=== PATIENT | female | born 2000 | race Caucasian/White ===

== ENCOUNTER 2022-11-06 14:51 | Outpatient (REF) | payer OTHER, SELFPAY ==
[2022-11-06 18:28] LABS: Abs Immature Grans 0.05 10^3/uL (0.0-0.06); Absolute Basophil Count 0.04 10^3/uL (0.0-0.2); Absolute Eosinophil Count 0.16 10^3/uL (0.0-0.7); Absolute Lymphocyte Count 2.23 10^3/uL (1.2-3.4); Absolute Monocyte Count 0.59 10^3/uL (0.1-0.8); Absolute Neutrophil Count 4.77 10^3/uL (1.2-6.7); Basophils % 0.5; HCT 39.5 % (36.0-46.0); HGB 12.7 g/dL (11.2-15.7); Immature Grans % 0.6; Lymphocytes % 28.4; MCH 26.8 pg (27.0-33.0); MCHC 32.2 % (32.0-36.0); MCV 84 fL (80-95); MPV 11.7 fL (8.0-11.0); Monocytes % 7.5; Platelet Count 338 10^3/uL (130-400); RBC 4.73 10^6/uL (3.93-5.22); RDW-SD 36.9 fL; WBC 7.84 10^3/uL (4.4-10.8)
[2022-11-06 18:39] LABS: ALT 46 U/L (14-59); AST 20 U/L (15-37); Albumin 4.8 g/dL (3.4-5.0); Alkaline Phosphatase 47 U/L (46-116); Anion Gap 10.6 mmol/L (3-11); BUN 12 mg/dL (7-18); Bilirubin, Total 0.4 mg/dL (0.2-1.0); CO2 26.4 mmol/L (21.0-32.0); CREATININE 0.9 mg/dL (0.55-1.02); Calcium 9.8 mg/dL (8.5-10.1); Chloride 104 mmol/L (98-107); Glucose 98 mg/dL (74-106); Potassium 4.3 mmol/L (3.5-5.1); Sodium 141 mmol/L (136-145); TSH (W/Ref FT4) 0.88 uIU/mL (0.36-3.74); Total Protein 7.4 g/dL (6.4-8.2)
[2022-11-06 18:45] LABS: ESR 7 mm/hr (0-20)
[2022-11-06 18:53] LABS: Vitamin D 25 Total 37.4 ng/mL (30-100)
[2022-11-09 13:42] LABS: ANA Interpretation Negative (Negative)
== END 2022-11-06 14:52 | disposition home or self-care (01) ==
LOC: NCHCN 14:51
PROVIDERS: Visit Provider Nurse Practitioner Family
DX: M25.50 Pain in unspecified joint (principal); M35.7 Hypermobility syndrome; I10 Essential (primary) hypertension; E55.9 Vitamin D deficiency, unspecified; N92.6 Irregular menstruation, unspecified
CPT/HCPCS: 80053; 82306; 85652; 84443; 85025; 86038

== ENCOUNTER 2022-12-22 12:18 | Outpatient (REF) | payer OTHER, SELFPAY ==
--- NOTE | 2022-12-22 11:20 | PAPFT_PTH ---
PATIENT: Stefan Olguin LOC: [facility] U#:[id number] AGE/SX: 22/F ROOM: RE12/22/[address]: Deirdre Wong DO : 2000 BED: DIS: 12/22/2022 SPEC #: [id number] RECD: 12/22/22 13:01 STATUS: KILLIAN REQ #: [id number] CORNELL: 12/22/22 11:[address]: Deirdre Wong DEPT: [facility] Cytology RECD BY: Sulema Muhammad Tissues: 1 - CX/ENDOCX FOR PAP SMEARS Procedures: PAP THIN PREP/[facility] Screening Comments: [id number] (CHLAMYDIA/GC)
[2022-12-23 15:10] LABS: Chlamydia Result Negative (Negative); GC Result Negative (Negative)
== END 2022-12-22 12:19 | disposition home or self-care (01) ==
LOC: LBN 12:18
PROVIDERS: Visit Provider Obstetrics & Gynecology
DX: Z11.3 Encounter for screening for infections with a predominantly sexual mode of transmission (principal); Z12.4 Encounter for screening for malignant neoplasm of cervix
CPT/HCPCS: 87491; 87591; 88142

== ENCOUNTER 2023-09-07 14:36 | Outpatient (REF) | payer OTHER, SELFPAY ==
[2023-09-07 14:15] LABS: Source Nasal/Nares
[2023-09-07 16:05] LABS: COVID-19 PCR Negative (Negative)
== END 2023-09-07 14:37 | disposition home or self-care (01) ==
LOC: LBN 14:36
PROVIDERS: Visit Provider Nurse Practitioner Family
DX: Z20.822 Contact with and (suspected) exposure to COVID-19 (principal)
CPT/HCPCS: 87635

== ENCOUNTER 2024-02-04 10:55 | Outpatient (REF) | payer OTHER, SELFPAY ==
[2024-02-04 15:07] LABS: HCT 41.4 % (36.0-46.0); HGB 13.2 g/dL (11.2-15.7); MCH 26.8 pg (27.0-33.0); MCHC 31.9 % (32.0-36.0); MCV 84 fL (80-95); MPV 11.5 fL (8.0-11.0); Platelet Count 303 10^3/uL (130-400); RBC 4.92 10^6/uL (3.93-5.22); RDW 12.3 % (11.7-14.6); RDW-SD 37.5 fL; WBC 8.07 10^3/uL (4.4-10.8)
[2024-02-04 15:28] LABS: ALT 26 U/L (14-59); AST 15 U/L (15-37); Albumin 4.5 g/dL (3.4-5.0); Alkaline Phosphatase 52 U/L (46-116); Anion Gap 6.6 mmol/L (3-11); BUN 15 mg/dL (7-18); Bilirubin, Total 0.4 mg/dL (0.2-1.0); CO2 28.4 mmol/L (21.0-32.0); CREATININE 0.8 mg/dL (0.55-1.02); Calcium 9.4 mg/dL (8.5-10.1); Chloride 105 mmol/L (98-107); Estimated GFR 105.45 (mL/min/1.73m2); Glucose 100 mg/dL (74-106); Potassium 4.8 mmol/L (3.5-5.1); Sodium 140 mmol/L (136-145); TSH (W/Ref FT4) 0.86 uIU/mL (0.36-3.74); Total Protein 7.5 g/dL (6.4-8.2)
== END 2024-02-04 10:56 | disposition home or self-care (01) ==
LOC: NCHCN 10:55
PROVIDERS: Visit Provider Nurse Practitioner Family
DX: R00.2 Palpitations (principal)
CPT/HCPCS: 80053; 85027; 84443

== ENCOUNTER 2024-02-11 12:57 | Outpatient (RCR) | payer OTHER, SELFPAY ==
--- NOTE | 2024-02-11 13:30 | HOLTER_ITS ---
APPROVED REPORT Conclusion This is a 48-hour Holter monitor Rhythm throughout was sinus with an average heart rate of 91. Minimum was 58, maximum 154 There were no ventricular dysrhythmias A total of 4 isolated premature atrial contractions were seen Multiple patient symptoms were reported which had no correlation to any dysrhythmia
== END 2024-03-05 23:59 | disposition home or self-care (01) ==
LOC: CARDOPNVT 12:57
PROVIDERS: Visit Provider Nurse Practitioner Family
DX: R00.2 Palpitations (principal); I49.1 Atrial premature depolarization
CPT/HCPCS: 93225; 93226

== ENCOUNTER 2025-02-05 16:15 | Outpatient (REF) | payer BC, SELFPAY ==
[2025-02-05 16:12] LABS: Anion Gap 7.4 mmol/L (3-11); BUN 15 mg/dL (7-18); CO2 30.6 mmol/L (21.0-32.0); CREATININE 0.7 mg/dL (0.55-1.02); Calcium 9.9 mg/dL (8.5-10.1); Chloride 102 mmol/L (98-107); Estimated GFR 123.01 (mL/min/1.73m2); Glucose 93 mg/dL (74-106); Sodium 140 mmol/L (136-145)
[2025-02-06 03:38] LABS: Hepatitis C Ab w Rflx HCV PCR Negative (Negative)
== END 2025-02-05 16:16 | disposition home or self-care (01) ==
LOC: NCHCN 16:15
PROVIDERS: PCP Nurse Practitioner Family; Visit Provider Nurse Practitioner Family
DX: Z00.00 Encounter for general adult medical examination without abnormal findings (principal); I10 Essential (primary) hypertension
CPT/HCPCS: 80048; 86803